=== PATIENT | male | born 1975 | race Caucasian/White ===

== ENCOUNTER 2017-03-02 09:00 | Emergency (ER) | payer BC ==
--- NOTE | ~2017-03-02 | ER ---
PATIENT'S NAME: LARRY ALVES [facility] AGE: 41 Y [address] ROOM: [place] [address] LOCATION: [facility] ADMIT DATE: 03/02/2017 ER/Outpatient Report DISCHARGE DATE: 03/02/2017 FAMILY PHYSICIAN: Josue Gan MD ATTENDING PHYSICIAN: Subhash Flores TIME OF ARRIVAL: 0904 hours. TIME OF EVALUATION: 0904 hours. CHIEF COMPLAINT: Right ear pain. HISTORY OF PRESENT ILLNESS: The patient is a 41-year-old male who presents to the emergency department today with a chief complaint of right ear pain. He reports he cannot hear out of it. He reports the pain started about one day prior to arrival. He does have a history of impaction in the past. He denies any fevers or chills. No nausea or vomiting. No diarrhea or constipation. No chest pain. No shortness of breath. No cough. No nasal congestion. Pain is currently mild in severity. PAST MEDICAL HISTORY: None. PAST SURGICAL HISTORY: Wrist, hand, foot. SOCIAL HISTORY: The patient smokes a pack per day for 15 years. Denies any alcohol or illicit drug use. ALLERGIES: NO KNOWN DRUG ALLERGIES. MEDICATIONS: None. REVIEW OF SYSTEMS: All systems are reviewed by myself and are negative with the exception of those discussed in the HPI and Past Medical History. PHYSICAL EXAMINATION: PATIENT'S NAME: LARRY ALVES [facility] AGE: 41 Y [address] ROOM: [place] [address] LOCATION: [facility] ADMIT DATE: 03/02/2017 ER/Outpatient Report DISCHARGE DATE: 03/02/2017 FAMILY PHYSICIAN: Josue Gan MD ATTENDING PHYSICIAN: Subhash Flores VITAL SIGNS: Blood pressure 122/81, pulse 65, respiratory rate 20, temperature 96.6, and oxygen saturation 98% on room air. Weight is 77 kg. GENERAL: The patient is a 41-year-old male who appears stated age, well developed, well nourished. HEENT: Normocephalic, atraumatic. Pupils are equal, round, and reactive to light. Bilateral external canals with ear wax impaction. Once the ear wax impaction is removed, there is erythema of the right canal. TMs appear normal without erythema or bulging. Oropharynx is clear. CARDIOVASCULAR: Regular rate and rhythm. No murmurs, rubs, or gallops. LUNGS: Clear to auscultation bilaterally. No wheezes, rales, or rhonchi. ABDOMEN: Soft, nontender, and nondistended. No rebound, rigidity, or guarding. MUSCULOSKELETAL: The patient moves all 4 extremities. Ambulates with a steady gait. SKIN: Warm and dry. There are no rashes or lesions noted. LABORATORY DATA AND X-RAYS: None. IMPRESSION: 1. Bilateral cerumen impactions. 2. Right otitis externa. 3. Initial visit. EMERGENCY DEPARTMENT COURSE: The patient was brought back to the examination room. Seen and evaluated by myself. The patient's ear canals are irrigated with tap water. This does remove large amounts of cerumen. I have discussed with the patient to use Ciprodex in the right ear canal. I have discussed return to care instructions including worsening symptoms or any other concerns, to return to the emergency department as soon as possible. The patient is agreeable without further questions. I have asked to follow up with ENT in 7 to 10 days for reevaluation. DISPOSITION: The patient is discharged to home in good condition. DO CATIE BEACH/dameonl PATIENT'S NAME: LARRY ALVES [facility] AGE: 41 Y [address] ROOM: [place], [place] [address] LOCATION: [facility] ADMIT DATE: 03/02/2017 ER/Outpatient Report DISCHARGE DATE: 03/02/2017 FAMILY PHYSICIAN: Josue Gan MD ATTENDING PHYSICIAN: Subhash Flores /[id number] d: 03/02/171426 t: 03/07/172032, OUTPATIENT REPORT
== END 2017-03-02 09:37 | disposition disaster alternative care site (69) ==
LOC: GMED 09:00
PROC: 3E1B78Z Irrigation of Ear using Irrigating Substance, Via Natural or Artificial Opening (ICD-10-PCS; principal; 2017-03-02)
DX: H61.23 Impacted cerumen, bilateral (principal); H60.91 Unspecified otitis externa, right ear; F17.210 Nicotine dependence, cigarettes, uncomplicated